=== PATIENT | male | born 1985 | race Caucasian/White ===

== ENCOUNTER 2017-11-04 13:02 | Emergency (ER) | payer SELFPAY ==
--- NOTE | 2017-11-04 13:34 | CPEKG ---
Heart Rate: 82 RR Interval: 732 P-R Interval: 192 QRSD Interval: 80 QT Interval: 372 QTC Interval: 435 P Knippa: 26 QRS Knippa: 63 T Wave Knippa: 40 EKG Severity - NORMAL ECG - EKG Impression: SINUS RHYTHM EKG Impression: ST ELEV, PROBABLE NORMAL EARLY REPOL PATTERN Electronically Signed By: Liborio Hicks 04-Nov-2017 14:44:19
--- NOTE | 2017-11-04 14:02 | EDPHY ---
General Time Seen by Provider: 11/04/17 13:44 Narrative: CHIEF COMPLAINT: Left-sided chest pain HISTORY OF PRESENT ILLNESS: Patient presents with significant other at bedside. He reports left-sided chest pain that started 90 min ago. This occurred after eating a meal. It was constant for nearly an hour. Associated with some tingling of the hand spasms and cramping of the hands and feet. No shortness of breath. No radiating pain. No exertional pain. No fever, cough or any recent illness. He has had this in the past several times, and he was evaluated at multiple facilities for this. He says that he has been told this is likely anxiety. He agrees that it may be this. They just recently moved here from [place], driving from [place] this week. No erythema, edema or pain of the extremities. No other associated complaints or modifying factors. REVIEW OF SYSTEMS: Ten systems reviewed and are negative unless otherwise noted in the HPI PCP: None SPECIALISTS: None PAST MEDICAL HISTORY: No ongoing diagnoses PAST SURGICAL HISTORY: None SOCIAL HISTORY: Recently moved here from [facility]. FAMILY HISTORY: Noncontributory EXAMINATION General Appearance: Alert, no distress Head: normocephalic, atraumatic Eyes: Pupils equal and round, no conjunctival pallor or injection ENT, Mouth: Mucous membranes moist Neck: Normal inspection, supple, non-tender Respiratory: Lungs are clear to auscultation Cardiovascular: Regular rate and rhythm. No murmur. Gastrointestinal: Abdomen is soft and nontender Back: non-tender, no bony abnormalities Neurological: A&O, nonfocal, normal gait Skin: Warm and dry, no rash Extremities: Nontender, no pedal edema Psychiatric: Mood and affect normal DIFFERENTIAL DIAGNOSES: Including but not limited to anxiety reaction, ACS, PE, pleurisy, pericarditis, musculoskeletal pain, dysrhythmia MDM: 1:45 p.m. Left-sided chest pain with history this suggest anxiety reaction. He does have recent flight from [place] to [place] and subsequent dry from [place] to [place], thus I have ordered a D-dimer. He is in no acute distress with vital signs stable. EKG is unremarkable and has been reviewed by Dr. Armendariz. Laboratory studies pending. Chest x-ray pending. 2:45 p.m. Laboratory studies thus far are negative. D-dimer is pending. 3:20 p.m. D-dimer negative. Troponin negative. Chest x-ray is unremarkable. He has notation of a T12 fracture. I have discussed this with him minutes of remote injury that he was treated for. No ongoing sequela. We discussed the possibility of anxiety reaction. We discussed follow up with primary care physician and logging specialist for further care. We also discussed ED precautions for any return of pain, weakness, shortness of breath, sweating, nausea vomiting. He states he has no pain at this time and is comfortable with discharge home. He discharged stable condition. EKG interpretation: Dr. Armendariz SUPERVISION: Patient was independently examined, but I discussed the case with my secondary supervising physician Dr. Armendariz - History Smoking Status: Never smoked - Objective Vital Signs: Initial Vital Signs Temperature (C) 98.2 F 11/04/17 13:07 Heart Rate 94 11/04/17 13:07 Respiratory Rate 22 H 11/04/17 13:07 Blood Pressure 127/98 H 11/04/17 13:07 O2 Sat (%) 97 11/04/17 13:07 O2 Delivery Mode Room Air Allergies/Adverse Reactions: No Known Allergies Allergy (Unverified 11/04/17 13:07) Home Medications: Medication Instructions Recorded hydrOXYzine HCL [Hydroxyzine HCl] 50 mg PO Q6-8PRN PRN #13 tablet 11/04/17 Laboratory Results: Laboratory Results 11/04/17 13:50 11/04/17 13:50 Departure - Departure Disposition: Home, Routine, Self-Care Clinical Impression: Acute chest pain, Anxiety reaction Condition: Good Instructions: Chest Pain (ED), Anxiety (ED), Anxiolysis in Adults (ED) Additional Instructions: 1. Contact the on-call primary care physician as provided 2. Contact on-call logging specialist for outpatient follow-up as provided 3. Return to emergency department for return of pain, sweating, nausea, vomiting , shortness of breath 4. Hydroxyzine as prescribed as needed should your anxiety type symptoms return Referrals: Prem Prabhakar DO [Medical Doctor] - As per Instructions Marco A Laureano MD [Medical Doctor] - As per Instructions Prescriptions: hydrOXYzine HCL [Hydroxyzine HCl] 50 mg PO Q6-8PRN PRN #13 tablet PRN Reason: Anxiety
[2017-11-04 14:12] LABS: PLATELET COUNT 277 10^3/uL (150-400)
[2017-11-04 15:48] VITALS: BP 115/72
== END 2017-11-04 15:48 | disposition home or self-care (01) ==
DX: R07.9 Chest pain, unspecified (principal); F41.9 Anxiety disorder, unspecified